=== PATIENT | male | born 1975 | race Caucasian/White ===

== ENCOUNTER 2017-02-01 10:04 | Emergency (ER) | payer BC, OTHER ==
[~2017-02-01] VITALS: Ht 177.8 cm; Wt 104.0 kg
[~2017-02-01 10:04] MED LIST: ADVIN25/60 INH; ALBU1AER9 INH; CLR10 PO; IBUP-103 PO; TRAM-10 PO
[2017-02-01 10:06] VITALS: TEMP 36.6; Ht 177.8 cm; Wt 104.0 kg
[2017-02-01] MEDS ORDERED: ALBU18002 INH (10:25)
--- NOTE | 2017-02-01 10:26 | EMERGENCY ROOM VISIT NOTE ---
History Report prepared by [place]: Alyce Guaman Under the Supervision of: Dr. Rigoberto Mcmahon M.D. First contact with patient: 10:14 Chief Complaint: ABDOMINAL PAIN Stated Complaint: ADB PAIN Nursing Triage Summary: pt here with abd pains, nausea since wednesday. diarrhea wednesday. pain is concentrated in rlq radiates into testicles. denies any back or flank pains. History of Present Illness The patient is a 41 year old male who presents to the Emergency Room with complaints of constant RLQ abdominal pressure beginning 3 days ago. The patient complains of abdominal cramping, nausea, diarrhea 3 days ago that has resolved, and groin pain. He denies any known fever, chills, urinary symptoms, and previous abdominal issues or surgeries. The patient states that he has a cyst on his right testicle that he was diagnosed with a long time ago. Source of History: patient Onset: 3 days ago Position: abdomen (RLQ) Quality: pressure Timing: constant Associated Symptoms: + diarrhea, + nausea, No chills, No fevers, No urinary symptoms Note: The patient complains of groin pain. Review of Systems All systems have been listed, reviewed, and are negative other than those previously mentioned. Please see Additional Medical History Sheet. Past Medical & Surgical Medical Problems: (1) Degenerative lumbar disc Family History No pertinent family history stated. Social History Smoking Status: Never Smoker Marital Status: single Housing Status: lives alone Current/Historical Medications Scheduled Fluticasone Prop/Salmeterol (Advair Diskus 250/50 60 Dose), 1 PUFF INH 2XWK Loratadine (Claritin), 10 MG PO QAM Scheduled PRN Albuterol Sulfate (Proair Respiclick), 1 PUFF INH QID PRN for Shortness of Breath Allergies Coded Allergies: No Known Allergies (Unverified , 02/01/17) Physical Exam Vital Signs Date Time Temp Pulse Resp B/P Pulse Ox O2 Delivery O2 Flow Rate FiO2 02/01/17 13:49 52 16 130/81 96 02/01/17 12:06 60 02/01/17 12:04 54 16 149/85 96 Room Air 02/01/17 10:06 36.6 66 16 163/96 97 Room Air Physical Exam GENERAL: Patient awake, alert, oriented x 3. Patient follows commands. Patient does not appear toxic. Patient is adequately hydrated and well- nourished. SKIN: No erythema, pallor, cyanosis or rash HEENT: Normal head, pupils equal, reactive to light and accommodation. LUNGS: Clear to auscultation. No wheezes, no rales, no rhonchi. HEART: No murmurs. No gallops. No rubs ABDOMEN: Obese, small right inguinal hernia, mild tenderness to RLQ, no guarding , no rebound, no hepatomegaly or splenomegaly. EXTREMITIES: No signs of trauma. No pedal or pretibial edema. No calf or thigh tenderness. NEUROLOGIC: Cranial nerves II-XII within normal limits. No gross motor sensory function deficits. Medical Decision & Procedures ER Provider Diagnostic Interpretation: CT results are interpretations by the radiologist and per my review. CT ABD/PELVIS IV AND ORAL CONT FINDINGS: Lower chest: There are bibasal airspace opacities likely atelectatic. There is a trace right pleural effusion. Liver: The contrast-enhanced liver is normal in size, contour, and attenuation. There is no intrahepatic biliary ductal dilatation. The hepatic veins and portal veins are patent. Gallbladder: Unremarkable. Spleen: Normal in size and attenuation. Pancreas: Unremarkable. Adrenal glands: Unremarkable. Kidneys: There is symmetric renal cortical enhancement. The kidneys are normal in size without hydronephrosis. Bowel: There are no transition zones indicate bowel obstruction. The appendix appears normal. There are scattered colonic diverticula. There are no acute peridiverticular inflammatory changes. Peritoneum: There is no intraperitoneal free air or abdominal ascites. Vasculature: The abdominal aorta is normal in course and caliber. Adenopathy: None. Pelvic viscera: The bladder, and pelvic viscera are unremarkable. Skeletal structures: No destructive osseous lesions are seen. IMPRESSION: 1. Trace right pleural effusion 2. No evidence of bowel obstruction. No evidence of free air 3. Normal appendix 4. No evidence of acute diverticulitis Electronically signed by: Harvey Alvarado M.D. 02/01/2017 1:08 PM Dictated Date/Time: 02/01/2017 1:03 PM Laboratory Results 02/01/17 10:30 Red Blood Count 4.53, Mean Corpuscular Volume 91.4, Mean Corpuscular Hemoglobin 31.8, Mean Corpuscular Hemoglobin Concent 34.8, Mean Platelet Volume 10.3, Neutrophils (%) (Auto) 58.8, Lymphocytes (%) (Auto) 29.3, Monocytes (%) (Auto) 5.9, Eosinophils (%) (Auto) 5.1, Basophils (%) (Auto) 0.9, Neutrophils # (Auto) 3.81, Lymphocytes # (Auto) 1.90, Monocytes # (Auto) 0.38, Eosinophils # (Auto) 0.33, Basophils # (Auto) 0.06 02/01/17 10:30 Test 02/01/17 10:30 02/01/17 11:20 White Blood Count 6.48 K/uL (4.8-10.8) Red Blood Count 4.53 M/uL (4.7-6.1) Hemoglobin 14.4 g/dL (14.0-18.0) Hematocrit 41.4 % (42-52) Mean Corpuscular Volume 91.4 fL (80-100) Mean Corpuscular Hemoglobin 31.8 pg (25-34) Mean Corpuscular Hemoglobin Concent 34.8 g/dl (32-36) Platelet Count 236 K/uL (130-400) Mean Platelet Volume 10.3 fL (7.4-10.4) Neutrophils (%) (Auto) 58.8 % Lymphocytes (%) (Auto) 29.3 % Monocytes (%) (Auto) 5.9 % Eosinophils (%) (Auto) 5.1 % Basophils (%) (Auto) 0.9 % Neutrophils # (Auto) 3.81 K/uL (1.4-6.5) Lymphocytes # (Auto) 1.90 K/uL (1.2-3.4) Monocytes # (Auto) 0.38 K/uL (0.11-0.59) Eosinophils # (Auto) 0.33 K/uL (0-0.5) Basophils # (Auto) 0.06 K/uL (0-0.2) RDW Standard Deviation 41.0 fL (36.4-46.3) RDW Coefficient of Variation 12.2 % (11.5-14.5) Immature Granulocyte % (Auto) 0.0 % Immature Granulocyte # (Auto) 0.00 K/uL (0.00-0.02) Anion Gap 9.0 mmol/L (3-11) Est Creatinine Clear Calc Drug Dose 127.7 ml/min Estimated GFR () 120.1 Estimated GFR (Non- 103.6 BUN/Creatinine Ratio 6.7 (10-20) Calcium Level 8.5 mg/dl (8.5-10.1) Total Bilirubin 0.4 mg/dl (0.2-1) Aspartate Amino Transf (AST/SGOT) 31 U/L (15-37) Alanine Aminotransferase (ALT/SGPT) 55 U/L (12-78) Alkaline Phosphatase 56 U/L (45-117) Total Protein 7.6 gm/dl (6.4-8.2) Albumin 3.9 gm/dl (3.4-5.0) Globulin 3.7 gm/dl (2.5-4.0) Albumin/Globulin Ratio 1.1 (0.9-2) Lipase 173 U/L (73-393) Urine Color YELLOW Urine Appearance CLEAR (CLEAR) Urine pH 8.0 (4.5-7.5) Urine Specific [place] 1.003 (1.000-1.030) Urine Protein NEG (NEG) Urine Glucose (UA) NEG (NEG) Urine Ketones NEG (NEG) Urine Occult Blood NEG (NEG) Urine Nitrite NEG (NEG) Urine Bilirubin NEG (NEG) Urine Urobilinogen NEG (NEG) Urine Leukocyte Esterase NEG (NEG) Laboratory results as stated above per my review. Medications Administered Medications (Trade) Dose Ordered Sig/Matty Route Start Time Stop Time Status Last Admin Dose Admin Ondansetron HCl (Zofran Inj) 4 mg Q1HWA PRN IV 02/01/17 10:30 02/01/17 14:19 DC 02/01/17 10:58 4 MG ED Course 1014: Past medical records reviewed. The patient was evaluated in room A12. A complete history and physical examination was performed. 1030: Zofran Inj 4mg PRN IV nausea. 1340: Upon reevaluation, the patient appeared to have improvement of his symptoms. I discussed today's findings with the patient. He verbalized agreement of the treatment plan. The patient was discharged home. Medical Decision Differential diagnoses include appendicitis, bowel obstruction, diverticulitis, Crohn's Disease, gastroenteritis, hernia. Multiple labs, urinalysis and CT were obtained. The patient does not have evidence of a bowel obstruction, appendicitis, Crohn's disease or diverticulitis. White count is not elevated. Urinalysis reveals no infection. Patient most likely has an acute viral infection causing his symptoms. Patient also does have a small right inguinal hernia but that is not at the site of his pain. Impression Primary Impression: Right lower quadrant abdominal pain Scribe Attestation The scribe's documentation has been prepared under my direction and personally reviewed by me in its entirety. I confirm that the note above accurately reflects all work, treatment, procedures, and medical decision making performed by me. Departure Information Dispostion Home / Self-Care Referrals Phil Wood III, M.D. (PCP) Forms Call Back Authorization, HOME CARE DOCUMENTATION FORM, IMPORTANT VISIT INFORMATION Patient Instructions My [facility] Additional Instructions 650 mg of Tylenol every 4 hours as needed for pain. Drink extra fluids. Follow-up the family physician in one week if symptoms have not resolved. Return here sooner if pain is getting worse.
[2017-02-01] MEDS ORDERED: ONDANSETRON INJ 2 MG/ML 2 ML VIAL IV PRN (10:30)
[2017-02-01 10:49] LABS: BASO % 0.9 %; BASO ABS # 0.06 K/uL (0-0.2); COMPLETE YES; EOS % 5.1 %; HEMATOCRIT 41.4 % (42-52); LYMPH % 29.3 %; MEAN CELL VOLUME 91.4 fL (80-100); MEAN CORPUSCULAR HEMOGLOBIN 31.8 pg (25-34); MEAN CORPUSCULAR HGB CONC 34.8 g/dl (32-36); MEAN PLATELET VOLUME 10.3 fL (7.4-10.4); MONO % 5.9 %; NEUT % 58.8 %; PLATELET COUNT 236 K/uL (130-400); RED BLOOD COUNT 4.53 M/uL (4.7-6.1); WHITE BLOOD COUNT 6.48 K/uL (4.8-10.8)
[2017-02-01 11:14] LABS: BUN/CREATININE RATIO 6.7 (10-20); CALCIUM 8.5 mg/dl (8.5-10.1); CREATININE 0.91 mg/dl (0.60-1.40); POTASSIUM 4.1 mmol/L (3.5-5.1)
[2017-02-01] MEDS ORDERED: OPTIRAY 320 IV PRN (11:15)
[2017-02-01 11:16] LABS: ALB/GLOB RATIO 1.1 (0.9-2)
[2017-02-01 11:44] LABS: URINE APPEARANCE CLEAR (CLEAR); URINE BILIRUBIN NEG (NEG); URINE COLOR YELLOW; URINE NITRITE NEG (NEG); URINE SPECIFIC GRAVITY 1.003 (1.000-1.030); UROBILINOGEN NEG (NEG); ZZUR CULT IF INDIC CLEAN CATCH NO
[2017-02-01 11:46] LABS: MANUAL MICROSCOPIC REQUIRED? NO; REVIEW REQ? NO
--- NOTE | 2017-02-01 13:09 | DIAGNOSTIC IMAGING REPORT ---
CT ABD/PELVIS IV AND ORAL CONT CLINICAL HISTORY: Right lower quadrant abdominal pain COMPARISON STUDY: None. TECHNIQUE: Following the IV administration of 94 mL of Optiray-320, CT scan of the abdomen and pelvis was performed from the lung bases to the proximal femurs. Images are reviewed in the axial, sagittal, and coronal planes. IV contrast was administered without complication. CT DOSE: 952.05 mGy.cm FINDINGS: Lower chest: There are bibasal airspace opacities likely atelectatic. There is a trace right pleural effusion. Liver: The contrast-enhanced liver is normal in size, contour, and attenuation. There is no intrahepatic biliary ductal dilatation. The hepatic veins and portal veins are patent. Gallbladder: Unremarkable. Spleen: Normal in size and attenuation. Pancreas: Unremarkable. Adrenal glands: Unremarkable. Kidneys: There is symmetric renal cortical enhancement. The kidneys are normal in size without hydronephrosis. Bowel: There are no transition zones indicate bowel obstruction. The appendix appears normal. There are scattered colonic diverticula. There are no acute peridiverticular inflammatory changes. Peritoneum: There is no intraperitoneal free air or abdominal ascites. Vasculature: The abdominal aorta is normal in course and caliber. Adenopathy: None. Pelvic viscera: The bladder, and pelvic viscera are unremarkable. Skeletal structures: No destructive osseous lesions are seen. IMPRESSION: 1. Trace right pleural effusion 2. No evidence of bowel obstruction. No evidence of free air 3. Normal appendix 4. No evidence of acute diverticulitis Electronically signed by: Harvey Alvarado M.D. 02/01/2017 1:08 PM Dictated Date/Time: 02/01/2017 1:03 PM
[2017-02-01 13:49] VITALS: BP 130/81; PULSE 52; O2SAT 96
== END 2017-02-01 13:52 | disposition home or self-care (01) ==
LOC: C.EDB 10:05 → C.EDA 13:52
DX: R10.31 Right lower quadrant pain (principal); R19.7 Diarrhea, unspecified; R11.0 Nausea; Z79.899 Other long term (current) drug therapy